=== PATIENT | male | born 1975 | race Caucasian/White ===

== ENCOUNTER 2016-04-21 00:19 | Emergency (ER) ==
[2016-04-21] MEDS ORDERED: CATAPRES PO ONE (00:30)
--- NOTE | 2016-04-21 00:48 | PROVIDER DOCUMENTATION ---
HPI-General Adult - General Source: patient - History of Present Illness -Gen Adult Nature of Presenting Problems: Pt. is 40 yom that presents with c/o elevated BP. Pt. reports he has never taken anything for his BP and reports that his head has been hurting and now his eyes are turning red. Pt. denies any other symptoms at this time. Location of Pain/Injury: reports: head. denies: face, mouth, neck, chest, upper extremity, hand(s), abdomen, back, pelvis, genitalia, lower extremity, feet, upper body, lower body, generalized Pain Radiation: reports: no radiation Quality of Pain: reports: aching. denies: burning, cramping, dull, fullness, indigestion, pressure, sharp, stabbing, tearing, throbbing, tightness Severity: reports: moderate. denies: mild, severe Onset/Duration: reports: gradual, 2 days ago Timing: reports: still present. denies: improving, gone now, resolved prior to arrival, intermittent, constant, changing over time, getting worse Context/Activities at Onset: reports: none. denies: recent emotional stress, recent physical stress, recent trauma history, possible bad food, cold exposure , out of country travel Modifying Factors: improves with: nothing Associated Symptoms: reports: headaches. denies: anxiety, arm pain, back/neck pain, chest pain, constipation, cough, diaphoresis, diarrhea, dizziness, EENT symptoms, fatigue, fever/chills, genitourinary problems, heartburn, joint pain, loss of appetite, malaise, muscle aches, sinus congestion/drainage, nausea, rash , seizure, shortness of breath, sensory/motor loss, pain with inspiration, swelling/mass in abdomen, syncope, vomiting, weakness, trouble walking Similar Symptoms Previously?: Yes Recently seen or treated by another doctor?: No <Joey Kaur - Last Filed: 04/21/16 01:57> <Moody Monteiro - Last Filed: 04/21/16 02:07> <Tremaine West - Last Filed: 04/21/16 04:16> - General Chief Complaint: B/P Problems Stated Complaint: BP ISSUES Time Seen by Provider: 04/21/16 00:21 Allergies/Adverse Reactions: Patient Allergies Allergy/AdvReac Type Severity Reaction Status Date / Time No Known Allergies Allergy Verified 04/21/16 00:26 Home Medications: Home Medication List Medication Instructions Recorded Confirmed Last Taken Type Gabapentin [Neurontin] 600 mg PO TID 04/21/16 04/21/16 1 Day Ago History LISINOpril [Prinivil] 10 mg PO DAILY #14 tablet 04/21/16 Unknown Rx Omeprazole [Prilosec] 20 mg PO DAILY 04/21/16 04/21/16 1 Day Ago History Oxcarbazepine [Trileptal] 600 mg PO DAILY 04/21/16 04/21/16 1 Day Ago History Review of Systems - Adult - REVIEW OF SYSTEMS - ADULT Constitutional: reports: see HPI. denies: chills, fever, fatique Eyes: reports: see HPI, redness. denies: discharge, blurred vision, double vision Ears, Nose, Mouth & Throat: reports: see HPI. denies: ear discharge, hearing loss, sinus problem, nose pain, loose teeth, mouth/dental pain, throat pain, throat swelling Cardiovascular: reports: see HPI. denies: chest pain, irregular heart rate, orthopnea, palpitations, syncope Respiratory: reports: see HPI. denies: cough, dyspnea on exertion, pleurisy, shortness of breath, wheezing Gastrointestinal: reports: see HPI. denies: abdominal pain, hematemesis, diarrhea, nausea, vomiting Genitourinary: reports: see HPI. denies: dysuria, discharge, flank pain, hematuria, hesitency, urgency Musculoskeletal: reports: see HPI. denies: bone pain, back pain, joint pain, muscle aches, neck pain Integumentary: reports: see HPI. denies: hives, itching, rash, skin thickening Neurological: reports: see HPI, headache/migraines. denies: ataxia, dizziness/ vertigo, numbness, paresthesia, seizure, tremors Psychiatric: reports: see HPI. denies: anxiety, depression, emotional problems , insomnia, panic attacks, suicidal thoughts <Joey Kaur - Last Filed: 04/21/16 01:57> Past History - Adult - PAST MEDICAL HISTORY-ADULT Review of Records: reports: Old Records Reviewed, Nursing Assessment Review, Medications Reviewed, Social history reviewed & non-contributory. Major Childhood Illnesses: reports: denies history Cardiovascular: reports: HTN - PRIOR SURGERIES/PROCEDURES Surgical/Procedure History: reports: tonsillectomy - IMMUNIZATION STATUS Childhood Immunizations: See Nurse Assessment Flu Vaccine: See Nurse Assessment - FAMILY HISTORY Family History: reviewed, not pertinent - SOCIAL HISTORY Smoking: quit greater than 1 year <Joey Kaur - Last Filed: 04/21/16 01:57> Physical Exam-General - PHYSICAL EXAM-ADULT Initial Vital Signs Reviewed: Yes - CONSTITUTIONAL General Appearance: alert, mild distress, obese. negative: thin, anxious, lethargic, slow to respond, obtunded, combative - EYES Eyes: PERRL/EOMI, pink conjunctivae. negative: pale conjunctivae, scleral icterus, subconjunctival hemorrhage - HEAD, EARS, NOSE, MOUTH & THROAT HENMT: normocephalic/atraumatic, moist mucous membranes. negative: angioedema, frontal tenderness, maxillary tenderness - NECK Neck: non-tender, full range of motion, supple, normal inspection. negative: lymphadenopathy, trachial deviation, thyromegaly - RESPIRATORY Respiratory: lungs clear, normal breath sounds. negative: crackles, rales, rhonchi, stridor, wheezing - CARDIOVASCULAR Cardiovascular: normal peripheral pulses, regular rate, rhythm, no edema, no JVD , no murmur. negative: extra beats, friction rub, irregularly irregular - CHEST (BREASTS) Chest/Breast: deferred - GASTROINTESTINAL (ABDOMEN) Abdominal Exam: normal bowel sounds, non tender, soft. negative: distended, guarding, rigid, rebound, tenderness, hernia, mass - GENITOURINARY Male Genitalia: deferred Rectal Exam: deferred Hemoccult Exam: deferred - LYMPHATIC Lymphatic: no adenopathy. negative: axilla node tender, cervical node tenderness - MUSCULOSKELETAL Back Exam: normal inspection, no CVA tenderness, no vertebral tenderness. negative: ecchymosis, swelling, vertebral tenderness Extremity: normal range of motion, non-tender, normal gait, normal inspection. negative: deformity, erythema, inflammation, swelling, tenderness Peripheral Pulses: radial (R): 2+, radial (L): 2+ - SKIN Integumentary: normal color, normal turgor, warm/dry. negative: cyanosis, diaphoresis, ecchymosis, erythema, jaundice, mottled, pallor, petechiae, purpura , rash, swelling, tenderness - NEUROLOGIC Neurologic: grossly normal, no motor/sensory deficits. negative: aphasia, facial droop, focal weakness, motor weakness, sensory deficit - PSYCHIATRIC Psych/Mental Status: normal mood/affect, normal thought content, normal thought process, oriented x 3. negative: anxious, paranoid, tearful <Joey Kaur - Last Filed: 04/21/16 01:57> Progress - CHANGE OF SHIFT REPORT (ED Provider) Report Given and Care Transferred to:: Dr. West Time of Transfer: 01:57 Items Pending: Labs Tentative Impression of Patient: Hypertension <Joey Kaur - Last Filed: 04/21/16 01:57> - EKG 1 Time of EKG reading by physician:: 01:33 EKG Read and Signed by:: Tremaine West EKG Interpretation (*Must complete 3 of following elements*): Abnormal Rate: 108 Rhythm: SINUS TACHYCARDIA [place]: normal QRS: normal AR Interval: normal ST Wave: normal <Moody Monteiro - Last Filed: 04/21/16 02:07> Departure <Joey Kaur - Last Filed: 04/21/16 01:57> <Moody Monteiro - Last Filed: 04/21/16 02:07> - Departure Time of Disposition Order: 04:15 Certified Medical Emergency: Emergent <Tremaine West - Last Filed: 04/21/16 04:16> - Departure DIAGNOSIS: Uncontrolled hypertension Disposition: HOME 01 Condition: Stable Additional Instructions: followup with your primary care doctor on Saturday for BP recheck, keep bp diary at home on daily basis Prescriptions: LISINOpril [Prinivil] 10 mg PO DAILY #14 tablet Referrals: Reji Dawkins MD [Primary Care Provider] - Physician Attestation
[2016-04-21] MEDS ORDERED: SODIUM CHLORIDE 0.9% INJ ONE (01:22)
[2016-04-21] MEDS ORDERED: G.I. COCKTAIL PO ONE (01:22)
[2016-04-21] MEDS ORDERED: PROTONIX IV ONE (01:22)
[2016-04-21] MEDS ORDERED: ASPIRIN PO ONE (01:22)
[2016-04-21 01:43] LABS: MANUAL DIFF NEEDED? NO
[2016-04-21] MEDS ORDERED: LOPRESSOR IV ONE (01:44)
[2016-04-21 02:03] LABS: BASO% 0.2 % (0.0-0.8); EOS# 0.04 X1000 (0.0-0.7); EOS% 0.5 % (0.0-10.0); HEMATOCRIT 43.8 % (42.0-52.0); HEMOGLOBIN 15.7 g/dL (14.0-18.0); IMM GRAN# 0.02 X1000 (0.0-0.04); IMM GRAN% 0.2 % (0.0-0.5); LYMPH# 1.56 X1000 (1.2-3.4); LYMPH% 18.4 % (20.5-51.1); MCH 31.8 PG (27-31); MCHC 35.8 g/dL (33-37); MCV 88.8 FL (81-99); MONO# 1.04 X1000 (0.11-0.59); MONO% 12.2 % (1.7-9.3); MPV 11.9 FL (7.4-10.4); NEUT% 68.5 % (42.2-75.2); PLT 250 X1000 (130-400); RBC 4.93 XMIL (4.7-6.1)
[2016-04-21 02:11] LABS: AGAP 14; ALBUMIN 5.1 g/dL (3.5-5.0); ALKALINE PHOSPHATASE 66 U/L (32-122); BUN 8 mg/dL (8-22); CALCIUM 9.8 mg/dL (8.8-10.2); CHLORIDE 102 mmol/L (98-107); COSMO 276; GOT 48 U/L (10-34); GPT 39 U/L (10-44); POTASSIUM 3.8 mmol/L (3.5-5.1); SODIUM 138 mmol/L (136-145); TCO2 22 mmol/L (25-35); TOTAL PROTEIN 7.5 g/dL (6.3-8.3)
[2016-04-21 02:12] LABS: CK PROFILE 803 U/L (24-204)
[2016-04-21 02:42] LABS: CK INDEX 1.8 (0.0-2.5); CK-MB 14.53 ng/mL (0.0-5.0)
[2016-04-21 02:47] LABS: UR AMPHETAMINES QUAL NONE DETECTED (NONE DETECT); UR BARBITUATES QUAL NONE DETECTED (NONE DETECT); UR BENZODIAZEPIN QUAL NONE DETECTED (NONE DETECT); UR CANNABINOIDS QUAL NONE DETECTED (NONE DETECT); UR COCAINE QUAL NONE DETECTED (NONE DETECT); UR MDMA QUAL NONE DETECTED (NONE DETECT); UR METHADONE QUAL NONE DETECTED (NONE DETECT); UR METHAMPHETAMINE QUAL NONE DETECTED (NONE DETECT); UR OPIATES QUAL NONE DETECTED (NONE DETECT); UR OXYCODONE QUAL NONE DETECTED (NONE DETECT); UR PCP QUAL NONE DETECTED (NONE DETECT); UR TCA QUAL NONE DETECTED (NONE DETECT)
[2016-04-21] MEDS ORDERED: PRINIVIL PO ONE (03:03)
[2016-04-21 04:13] VITALS: BP 139/97
--- NOTE | 2016-04-21 09:32 | EKG Report ---
Test Performed on : 04/21/2016 01:32:45 AM Test Reason : CP Blood Pressure : / mmHG Vent. Rate : 108 BPM Atrial Rate : 108 BPM P-R Int : 160 ms QRS Dur : 084 ms QT Int : 352 ms P-R-T Axes : 039 045 051 degrees QTc Int : 471 ms Sinus tachycardia. Otherwise normal ECG When compared with ECG of 18-JUN-2010 11:00, No significant change was found Unconfirmed Result
== END 2016-04-21 04:35 | disposition home or self-care (01) ==
LOC: P.ED 00:19
DX: I10 Essential (primary) hypertension (principal); R94.31 Abnormal electrocardiogram [ECG] [EKG]; R51 Headache; E66.9 Obesity, unspecified; Z79.899 Other long term (current) drug therapy; Z87.891 Personal history of nicotine dependence
CPT/HCPCS: 80053; 80305; 82550; 82553; 84484; 85025; 93005; 96374; 96375; C9113; S0164